=== PATIENT | male | born 1980 | race Caucasian/White ===

== ENCOUNTER 2017-01-07 14:00 | Emergency (ER) | payer BC, MEDICAID ==
[2017-01-07 16:21] VITALS: BP 118/70
--- NOTE | 2017-01-07 17:29 | UC ---
Oksana East Edward, scribed for Solo Vazquez MD on 01/07/17 at 1712 . Ear Complaint HPI - HPI Summary HPI Summary: 36 y/o male presents to [facility] c/o L ear pain and clog starting yesterday. The pain is rated 3/10 in severity at triage. The symptoms are not alleviated by yawning or opening his mouth wide. Associated sx: mild hearing loss in the L ear. Pt went swimming around a week ago. Denies rhinorrhea, sore throat. Past medications reviewed on visit. Pt flew from the [facility] on 01/03/17 - History of Current Complaint Chief Complaint: UCEar Stated Complaint: PLUGGED EAR Time Seen by Provider: 01/07/17 16:46 Hx Obtained From: Patient Onset/Duration: Lasting Days, Still Present Severity Currently: Mild Pain Intensity: 3 Pain Scale Used: 0-10 Numeric Associated Signs/Symptoms: Positive: Hearing Loss - Mild - Allergies/Home Medications Allergies/Adverse Reactions: Allergies Allergy/AdvReac Type Severity Reaction Status Date / Time No Known Allergies Allergy Verified 01/07/17 16:21 PMH/Surg Hx/FS Hx/Imm Hx - Additional Past Medical History Additional PMH: Positive: joint pain Previously Healthy: No GI/ History: Other Other GI/ History: Hernia - Surgical History Surgical History: Yes Surgery Procedure, Year, and Place: HERNIA REPAIR - Social History Occupation: Employed Full-time Lives: With Family Alcohol Use: Occasionally Substance Use Type: Marijuana Substance Use Comment - Amount & Last Used: HX OF NONE RECENTLY Smoking Status (MU): Never Smoked Tobacco Review of Systems Constitutional: Negative Skin: Negative Eyes: Negative ENT: Other - Ear clog and mild hearing loss Respiratory: Negative Cardiovascular: Negative Gastrointestinal: Negative Genitourinary: Negative Motor: Negative Neurovascular: Negative Musculoskeletal: Negative Neurological: Negative Psychological: Negative All Other Systems Reviewed And Are Negative: Yes Physical Exam Triage Information Reviewed: Yes Appearance: Well-Appearing, No Pain Distress Vital Signs: Initial Vital Signs Temp 97.6 F 01/07/17 16:17 Pulse 74 01/07/17 16:17 Resp 18 01/07/17 16:17 BP 118/70 01/07/17 16:17 Pulse Ox 100 01/07/17 16:17 Vital Signs Reviewed: Yes Eye Exam: Normal ENT: Positive: TM bulging - L, Other: - Serous otitis media. Minimal ear wax in both ears. Neck: Positive: Supple, Nontender Respiratory: Positive: Lungs clear, Normal breath sounds Cardiovascular: Positive: RRR Abdominal Exam: Normal Abdomen Description: Positive: Nontender Bowel Sounds: Positive: Present Musculoskeletal Exam: Normal Musculoskeletal: Positive: Strength Intact, ROM Intact Neurological Exam: Normal Neurological: Positive: Alert Psychological: Positive: Age Appropriate Behavior Ear Complaint Course/Dx - Course Course Of Treatment: MEDICATIONS REVIEWED - Differential Dx/Diagnosis Provider Diagnoses: LEFT MARIE AND OTITIS EXTERNA Discharge - Discharge Plan Condition: Stable Disposition: HOME Prescriptions: Amoxicillin/Clavulanate TAB* [Augmentin TAB 875*] 875 mg PO BID #20 tab Neomyc/Polym/HC 1% OTIC SUSP* [Cortisporin Otic Susp 1%*] 4 drop LEFT EAR QID # 1 btl Patient Education Materials: Otitis Externa (ED), Serous Otitis Media (ED) Referrals: Cammy Gentile MD [Primary Care Provider] - Additional Instructions: FOLLOW UP WITH YOUR DOCTOR. GET RECHECKED FOR ANY WORSENING OF YOUR CONDITION OR QUESTIONS OR CONCERNS. The documentation as recorded by the Oksana thompson Edward accurately reflects the service I personally performed and the decisions made by me, Solo Vazquez MD.
== END 2017-01-07 17:33 | disposition home or self-care (01) ==
LOC: UCEAST 14:00
DX: H65.92 Unspecified nonsuppurative otitis media, left ear (principal); H60.8X2 Other otitis externa, left ear; F12.90 Cannabis use, unspecified, uncomplicated
CPT/HCPCS: 99212; G0463